=== PATIENT | male | born 1980 | race Caucasian/White ===

== ENCOUNTER 2016-11-05 15:29 | Emergency (ER) | payer OTHER ==
[~2016-11-05] VITALS: Ht 182.9 cm; Wt 109.1 kg
[2016-11-05 15:33] VITALS: TEMP 37.1; Ht 182.9 cm; Wt 109.1 kg
[2016-11-05] MEDS ORDERED: CYCL10TA6 PO (17:02)
[2016-11-05] MEDS ORDERED: IBUP-1427 PO (17:02)
--- NOTE | 2016-11-05 17:06 | EMERGENCY ROOM VISIT NOTE ---
History Report prepared by Jesica: Natali Del Toro Under the Supervision of: Dr. Jose López M.D. First contact with patient: 16:06 Chief Complaint: BACK PAIN Stated Complaint: BACK PAIN History of Present Illness The patient is a 36 year old male who presents to the Emergency Room with complaints of constant left sided lower back pain beginning 3 days prior to arrival. He rates his pain as 6/10 in severity. The patient describes his pain as an aching sensation. He note the pain began with a gradual onset. The patient notes pain radiates into his left thigh. He notes when walking his steps are shorter than normal and when laying down on his left side the pain worsens. He notes about 2 months ago he experienced similar pain which resolved on its own. The patient is unsure as to what he did to cause this pain. He did take Ibuprofen and Excedrin today with no relief of his symptoms. The patient denies fevers, chills, urinary symptoms or trouble moving his bowels. The patient has a laminectomy done 6 years ago on his right side. Source of History: patient Onset: [address] [employer] WORK[employer] Position: back (lower) Symptom Intensity: 6/10 Quality: ache Timing: constant Modifying Factors (Relieving): other (laying down on left side) Associated Symptoms: No fevers, No chills, No urinary symptoms Review of Systems All systems have been listed, reviewed, and are negative other than those previously mentioned. Please see Additional Medical History Sheet. Past Medical & Surgical Surgical Problems: (1) S/P laminectomy Family History Cancer Heart disease Hypertension Lung disease Social History Smoking Status: Former Smoker Alcohol Use: occasionally Marital Status: Housing Status: lives with significant other Occupation Status: employed Current/Historical Medications Scheduled PRN Cyclobenzaprine Hcl (Flexeril), 10 MG PO TID PRN for back pain Ibuprofen Tab (Motrin), 600 MG PO Q6H PRN for Pain Allergies Coded Allergies: Cefaclor (Verified Allergy, Intermediate, Swelling, 11/05/16) Erythromycin (Verified Allergy, Intermediate, Swelling, 11/05/16) Sulfisoxazole (Verified Allergy, Intermediate, Swelling, 11/05/16) Physical Exam Vital Signs Date Time Temp Pulse Resp B/P (MAP) Pulse Ox O2 Delivery O2 Flow Rate FiO2 11/05/16 17:18 56 18 166/76 98 Room Air 11/05/16 15:33 37.1 64 16 156/108 99 Room Air Physical Exam GENERAL: Patient awake, alert, oriented x 3. Patient follows commands. Patient does not appear toxic. Patient is adequately hydrated and well- nourished. SKIN: No erythema, pallor, cyanosis or rash HEENT: Normal head, pupils equal, reactive to light and accommodation. Ears normal. Oral cavity and posterior pharynx appear normal. Neck: Without adenopathy, no neck vein distention. LUNGS: Clear to auscultation. No wheezes, no rales, no rhonchi. HEART: No murmurs. No gallops. No rubs ABDOMEN: No masses, no rebound, no hepatomegaly or splenomegaly. EXTREMITIES: No signs of trauma. No pedal or pretibial edema. No calf or thigh tenderness. Strength of 5/5 in both upper and lower. Normal range of motion of upper and lower. MUSCULOSKELETAL: Positive straight leg raise test of left at 30 degree angle. Negative cross straight leg test of right leg. No point tenderness in cervical to lumbar spine. Pain with extension of back. Gait - pain reproduced with heel walking. NEUROLOGIC: Cranial nerves II-XII within normal limits. DTR 2+. Sensation intact. Medical Decision & Procedures Medications Administered Medications (Trade) Dose Ordered Sig/Arsh Route Start Time Stop Time Status Last Admin Dose Admin Cyclobenzaprine HCl (FLEXERIL 10MG Home Pack) 1 homepack UD ONCE PO 11/05/16 17:15 11/05/16 17:16 DC 11/05/16 17:20 1 HOMEPACK ED Course 1650: Past medical records reviewed. The patient was evaluated in room C2. A complete history and physical examination was performed. 1715: Flexeril 10 mg home pack 1 homepack PO. 1725: Upon reevaluation, the patient appeared to have improvement of his symptoms. I discussed today's findings with him. He verbalized agreement of the treatment plan. He was discharged home. Medical Decision Nurses notes reviewed. Medical history sheet reviewed. Differential diagnosis includes but is not limited to: spinal stenosis, disc herniation, musculoskeletal strain, cauda equina syndrome, sciatica. The patient is here with back pain. He is no deformity or signs of infection. The patient is a prior history of a laminectomy. Exam at this time is most consistent with musculoskeletal strain. The patient was placed on ibuprofen and Flexeril. He is to follow-up with employee health to make sure that his symptoms are resolving. The patient was placed off work for 2 days. Medication Reconciliation: I attest that I have personally reviewed the patient' s current medication list. Blood Pressure Screening: Patient was found to have an elevated blood pressure and was referred to their primary doctor for recheck and further treatment. Impression Primary Impression: Lumbar strain Scribe Attestation The scribe's documentation has been prepared under my direction and personally reviewed by me in its entirety. I confirm that the note above accurately reflects all work, treatment, procedures, and medical decision making performed by me. Departure Information Dispostion Home / Self-Care Prescriptions Cyclobenzaprine Hcl (FLEXERIL) 10 Mg Tab 10 MG PO TID Y for back pain, #10 TAB Prov: Jose López M.D. 11/05/16 Ibuprofen Tab (MOTRIN) 600 Mg Tab 600 MG PO Q6H Y for Pain, #20 TAB Prov: Jose López M.D. 11/05/16 Referrals No Doctor, Assigned (PCP) Forms HOME CARE DOCUMENTATION FORM, IMPORTANT VISIT INFORMATION, Work Instructions Patient Instructions My [facility] Additional Instructions Apply heat intermittently to your back over the next 2-3 days. 600 mg ibuprofen every 6 hours as needed for pain. One Flexeril every 8 hours as needed for back pain. Do not drive or operate machinery while taking Flexeril. Follow-up with Employee Health in one week if symptoms are not subsiding. Off work Monday 11/06 and Sunday11/07/16.
[2016-11-05] MEDS ORDERED: FLEXERIL HOME PACK 10 MG VIAL PO ONE (17:15)
[2016-11-05 17:18] VITALS: BP 166/76; PULSE 56; O2SAT 98
== END 2016-11-05 17:41 | disposition home or self-care (01) ==
LOC: C.EDB 15:30 → C.EDC 17:41
DX: S39.012A Strain of muscle, fascia and tendon of lower back, initial encounter (principal); X58.XXXA Exposure to other specified factors, initial encounter; Z82.49 Family history of ischemic heart disease and other diseases of the circulatory system; Z87.891 Personal history of nicotine dependence

== ENCOUNTER 2016-12-11 19:36 | Emergency (ER) | payer OTHER ==
[~2016-12-11] VITALS: Ht 182.9 cm; Wt 105.9 kg
[~2016-12-11 19:36] MED LIST: IBUP-1427 PO
[2016-12-11 19:46] VITALS: TEMP 37.1; Ht 182.9 cm; Wt 105.9 kg
[2016-12-11] MEDS ORDERED: KETOROLAC TROMETHAMINE 60 MG/2 ML VIAL IM STA (19:57)
[2016-12-11] MEDS ORDERED: HYDROCODONE/ACETAMOPHEN 5/325MG TAB PO STA (19:57)
[2016-12-11] MEDS ORDERED: DEXAMETHASONE SOD INJ 10 MG/ML VIAL IM ONE (20:00)
[2016-12-11] MEDS ORDERED: HYDR-5688 PO (20:17)
[2016-12-11] MEDS ORDERED: METH4PAK PO (20:17)
--- NOTE | 2016-12-11 20:35 | EMERGENCY ROOM VISIT NOTE ---
History First contact with patient: 19:52 Chief Complaint: BACK PAIN Stated Complaint: LEFT BACK PAIN History of Present Illness The patient is a 36 year old male who presents to the Emergency Room with complaints of left lower back pain. The patient states that approximately a month ago he had pain in the left lower back. He was seen here in the emergency room. 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 The patient denies any pain radiating down to his toes or any numbness and tingling in his lower extremity. The patient denies any loss of bowel or bladder control. The patient denies any saddle anesthesia. The patient does admit to a laminectomy 6 years ago. That was performed at [facility] by Dr. Sands Review of Systems 6 system review was performed and was negative unless stated otherwise in history of present illness. Past Medical/Surgical History Surgical Problems: (1) S/P laminectomy Family History Cancer Heart disease Hypertension Lung disease Social History Smoking Status: Never Smoker Alcohol Use: occasionally Marital Status: Housing Status: lives with significant other Occupation Status: employed Current/Historical Medications Scheduled Methylprednisolone (Medrol Dosepak), 0 PO DAILY Scheduled PRN Hydrocodone/Acetaminophen 5MG/325MG ([place] 5MG/325MG), 1-2 TABLET PO Q6 PRN for Pain Ibuprofen Tab (Motrin), 600 MG PO Q6H PRN for Pain Physical Exam Vital Signs Date Time Temp Pulse Resp B/P (MAP) Pulse Ox O2 Delivery O2 Flow Rate FiO2 12/11/16 19:46 37.1 98 18 151/94 100 Room Air Physical Exam PHYSICAL EXAM: Vital Signs normal: Reviewed Nurse's notes and agree. GENERAL: 36-year-old white male appears in no acute distress. MENTAL STATUS: Alert and oriented 3 LUMBAR SPINE: No gross bony abnormality noted. Patient is nontender to palpation over the spinous processes. He is nontender to palpation over the paravertebral regions bilaterally. He has limited range of motion in all directions secondary to pain.. Muscle strength is 5 out of 5 bilateral lower extremities and symmetrical. NEURO: Patient is able to heel and toe walk without difficulty. I lateral patellar and Achilles reflexes are 2+. Sensation is intact to pinprick bilateral lower extremities. Positive straight leg raise on the left. Medical Decision & Procedures Medications Administered Medications (Trade) Dose Ordered Sig/Arsh Route Start Time Stop Time Status Last Admin Dose Admin Dexamethasone Sodium Phosphate (Decadron Inj) 10 mg NOW ONCE IM 12/11/16 20:00 12/11/16 20:01 DC 12/11/16 20:07 10 MG Ketorolac Tromethamine (Toradol Inj) 60 mg NOW STAT IM 12/11/16 19:57 12/11/16 19:59 DC 12/11/16 20:06 60 MG Acetaminophen/ Hydrocodone Bitart ([place] 5/325 Tab) 2 tab NOW STAT PO 12/11/16 19:57 12/11/16 19:59 DC 12/11/16 20:07 2 TAB ED Course The patient was evaluated. The patient's EMR was reviewed. The patient was given Toradol 60 mg IM, Decadron 10 mg IM and [place] 5/325 mg 2 tablets by mouth for pain. The patient was reevaluated was feeling slightly better. The patient was discharged home in stable condition with his driving. Medical Decision Differential diagnosis include lumbar strain, sciatica, herniated disc [place] Drug Monitoring Program Search Results: patient reviewed within database Medication Reconcilliation Current Medication List: was personally reviewed by me Blood Pressure Screening Patient's blood pressure: Elevated blood pressure Blood pressure disposition: Elevated BP felt to be situational Impression Primary Impression: Low back pain with left-sided sciatica Departure Information Dispostion Home / Self-Care Condition GOOD Prescriptions Hydrocodone/Acetaminophen 5MG/325MG ([place] 5MG/325MG) Tab 1-2 TABLET PO Q6 Y for Pain, #20 TAB For Initial Treatment Prov: Terra Olivas PA-C 12/11/16 Methylprednisolone (MEDROL DOSEPAK) 4 Mg [place] 0 PO DAILY, #1 PKT Prov: Terra Olivas PA-C 12/11/16 Referrals No Doctor, Assigned (PCP) Forms HOME CARE DOCUMENTATION FORM, IMPORTANT VISIT INFORMATION Patient Instructions My [facility] Additional Instructions Off for tomorrow .Take Medrol dosepak as prescribed. Take ibuprofen 600 mg every 6 hours with food for pain. Take [place] as needed for more severe pain. Do not drive while taking the [place]. Do not stay in any one position for any extended period of time. If symptoms are not improving in 3-4 days, follow-up with your family doctor. Work Instructions Return To Work: 2 days Problem Qualifiers Primary Impression: Low back pain with left-sided sciatica Chronicity: acute Back pain laterality: left Qualified Codes: M54.42 - Lumbago with sciatica, left side
[2016-12-11 20:48] VITALS: BP 149/87; PULSE 68; O2SAT 96
== END 2016-12-11 20:50 | disposition home or self-care (01) ==
LOC: C.EDB 19:37 → C.EDD 20:50
DX: M54.42 Lumbago with sciatica, left side (principal); Z98.890 Other specified postprocedural states; Z80.9 Family history of malignant neoplasm, unspecified; Z82.49 Family history of ischemic heart disease and other diseases of the circulatory system

== ENCOUNTER 2021-02-12 06:23 | Inpatient (IN) ==
[2021-02-12] MEDS ORDERED: SODIUM CHLORIDE 0.9% 1000ML 1,000 ML IV STA (06:37)
--- NOTE | 2021-02-12 06:44 | Emergency Department Note ---
Impression & Plan 2019 novel coronavirus-infected pneumonia (NCIP), Hypoxia, Hypokalemia, Acute hyponatremia, Abnormal EKG ED Provider Note NAME: CRISTÓBAL RODRIGUEZ AGE: 40 SEX: M : 1980 ARRIVES VIA: Walk-In INFORMANT: Patient, ED PROVIDER(S): Adilson Mancini DO CHIEF COMPLAINT: Cough HPI: The patient is a 40-year-old male who is 11 days into COVID-19 infection. He started having symptoms 11 days ago. The patient did have a test that was positive. He is noticed cough and chest tightness. He is also noticed some nausea. He notices decreased smell and taste. He has not noticed any hemoptysis. He denies having any lower extremity swelling. He does complain of muscle aches as well as back pain. The patient has had no abdominal pain. He states symptoms became moderate to severe over the last couple days so he presented to the emergency department for further evaluation. The patient is not vaccinated against COVID-19. He did not see his family doctor for the symptoms. ROS: See above HPI for pertinent positives & negatives. A total of 10 systems reviewed and were otherwise negative. PAST MEDICAL HISTORY: See Below PAST SURGICAL HISTORY: See Below FAMILY HISTORY: See Below SOCIAL HISTORY: See Below HOME MEDICATIONS: See Below ALLERGIES: See Below VITALS: See Below PHYSICAL EXAMINATION: GENERAL: The patient is awake and alert. The patient is somewhat anxious appearing. EYES: The conjunctivae are clear. The pupils are round and reactive. EARS, NOSE, MOUTH AND THROAT: The nose is without any evidence of any deformity. NECK: The neck is nontender and supple. RESPIRATORY: There is no tachypnea or conversational dyspnea. Diminished breath sounds are noted throughout. CARDIOVASCULAR: Regular rate and rhythm noted there no murmurs rubs or gallops normal S1 normal S2. GASTROINTESTINAL: The abdomen is soft. Abdomen is nontender. MUSCULOSKELETAL/EXTREMITIES: There is no evidence of gross deformity full range of motion is noted in the hips and shoulders. SKIN: There is no obvious evidence of any rash. There are no petechiae, pallor or cyanosis noted. NEUROLOGIC: Patient is awake alert and oriented x3 MEDICAL DECISION MAKING: The patient is a 40-year-old male who is approximately 11 days with COVID-19 symptoms. The patient started having cough over the last few days. He is noticed very significant shortness of breath especially with exertion. He also notices chest pain. The patient was found to have some hypoxia with an abnormal chest x-ray that appears to be consistent with COVID-19. I discussed the patient's laboratory and radiographic studies with him. He was placed on submental oxygen. He also was treated with potassium replacement. He did have a repeat EKG in the emergency department. This appeared to show an irregular heart rate with ectopic beats. Given his acute potassium situation this is likely the cause. Given his findings I discussed his case with the on-call [facility] hospitalist. They have agreed to evaluate the patient in the emergency department for further management and disposition. Triage Nursing notes reviewed. Prior medical records reviewed Vital Signs: reviewed and remarkable for no significant abnormalities Differential diagnosis: Cardiac ischemia, aortic dissection, pulmonary embolism, pneumothorax, pneumonia, pericarditis, myocarditis, esophageal rupture, GERD, cholecystitis, pancreatitis, musculoskeletal, as well as other pathologies. ER treatment provided: See below Diagnostics interpreted by me: ECG: EKG was obtained in the emergency department. My interpretation is normal sinus rhythm at [address] Inferior and lateral ST depressions were noted. There was no ectopy. No previous tracing was available for comparison. A second EKG was obtained in the emergency department. My interpretation is normal sinus rhythm at 69 bpm. There is no ectopy. Inferior and lateral ST depressions were noted. This was compared to earlier tracing. There is no significant change. Cardiac Monitoring: An order was placed for continuous cardiac monitoring. The monitor shows a rate of 73 bpm with sinus rhythm. Laboratory studies: As stated above and show below. Imaging studies: See below Consultation(s): I discussed this case with Dr. Sales who is on-call for the [facility] hospitalist group. He will evaluate the patient in the emergency department for further management and disposition. Past Med/Surg History Medical History Exercise-induced asthma Lumbar strain Surgical History S/P laminectomy Social History Smoking Status: Former smoker Feels Safe at Home: Yes Allergies Allergies Allergy/AdvReac Type Severity Reaction Status Date / Time cefaclor Allergy Intermediate Swelling Verified 02/12/21 07:30 erythromycin base Allergy Intermediate Swelling Verified 02/12/21 07:30 sulfisoxazole Allergy Intermediate Swelling Verified 02/12/21 07:30 Home Meds Home Medications Medication Instructions Recorded Confirmed No Known Home Medications 02/12/21 02/12/21 Results & Data (ED) Vital Signs Vital Signs - 24 hr 02/12/21 06:26 02/12/21 07:00 02/12/21 08:13 Temperature 36.2 C L 37.6 C H Temperature Source Temporal Artery Scan Oral Pulse Rate 69 66 Pulse Rate [Apical] 73 Pulse Rate from SpO2 Sensor Pulse Rhythm Regular Respiratory Rate 18 20 13 Respiratory Effort / Characteristics Non-Labored Spontaneous Respiratory Depth Normal Blood Pressure 103/69 Blood Pressure [Left Arm] 120/73 Blood Pressure Mean 80 Blood Pressure Mean [Left Arm] 88 Pulse Oximetry 91 92 89 L Oxygen Delivery Method Room Air Room Air Room Air Oxygen Flow Rate Sepsis Recent Fever Within 48 Hours No Sepsis New/Unexplained Change in Mental Status No Sepsis Action Taken by Nursing No Action Required 02/12/21 08:15 02/12/21 10:00 02/12/21 10:30 Temperature Temperature Source Pulse Rate 63 68 Pulse Rate [Apical] Pulse Rate from SpO2 Sensor 68 Pulse Rhythm Respiratory Rate 28 H 30 H Respiratory Effort / Characteristics Respiratory Depth Blood Pressure 117/77 Blood Pressure [Left Arm] Blood Pressure Mean 90 Blood Pressure Mean [Left Arm] Pulse Oximetry 93 91 92 Oxygen Delivery Method Nasal Cannula Nasal Cannula Nasal Cannula Oxygen Flow Rate 2 2 2 Sepsis Recent Fever Within 48 Hours Sepsis New/Unexplained Change in Mental Status Sepsis Action Taken by Nursing 02/12/21 11:00 Temperature Temperature Source Pulse Rate 61 Pulse Rate [Apical] Pulse Rate from SpO2 Sensor 61 Pulse Rhythm Respiratory Rate 27 H Respiratory Effort / Characteristics Respiratory Depth Blood Pressure 119/77 Blood Pressure [Left Arm] Blood Pressure Mean 91 Blood Pressure Mean [Left Arm] Pulse Oximetry 92 Oxygen Delivery Method Nasal Cannula Oxygen Flow Rate 2 Sepsis Recent Fever Within 48 Hours Sepsis New/Unexplained Change in Mental Status Sepsis Action Taken by Usp Medications Current Medication List: was personally reviewed by me Laboratory Data Attestation: I reviewed the patient's lab results. Result diagrams: 02/12/21 07:11 02/12/21 07:11 Lab Results 02/12/21 02/12/21 02/12/21 Range/Units 07:11 07:11 07:11 WBC 3.17 L (4.8-10.8) K/uL RBC 4.62 L (4.7-6.1) M/uL Hgb 15.7 (14.0-18.0) g/dL Hct 42.8 (42-52) % MCV 92.6 (80-100) fL MCH 34.0 (25-34) pg MCHC 36.7 H (32-36) g/dL RDW Std Deviation 45.2 (36.4-46.3) fL RDW Coeff of Ankit 13.3 (11.5-14.5) % Plt Count 192 (130-400) K/uL MPV 11.5 H (7.4-10.4) fL Immature Gran % (Auto) 0.3 % Neut % (Auto) 67.2 % Lymph % (Auto) 18.6 % Payette % (Auto) 13.9 % Eos % (Auto) 0.0 % Baso % (Auto) 0.0 % Neut # (Auto) 2.13 (1.4-6.5) K/uL Lymph # (Auto) 0.59 L (1.2-3.4) K/uL Payette # (Auto) 0.44 (0.11-0.59) K/uL Eos # (Auto) 0.00 (0-0.5) K/uL Baso # (Auto) 0.00 (0-0.2) K/uL Immature Gran # (Auto) 0.01 (0.00-0.02) K/uL PT 11.0 (9.0-12.0) Seconds INR 1.1 (0.9-1.1) APTT 30.3 (21.0-31.0) Seconds PTT Ratio 1.2 D-Dimer 500 (0-500) ug/L FEU Sodium 127 L (136-145) mmol/L Potassium 2.5 L* (3.5-5.1) mmol/L Chloride 89 L (98-107) mmol/L Carbon Dioxide 25 (21-32) mmol/L Anion Gap 13.0 H (3-11) BUN 9 (7-18) mg/dl Creatinine 0.72 (0.6-1.4) mg/dl Est Cr Clr Drug Dosing 166.2 ml/min Est GFR ( Amer) 137.2 ml/min Est GFR (Non-Af Amer) 118.3 ml/min BUN/Creatinine Ratio 12.7 (10-20) Glucose 100 H (70-99) mg/dl Calcium 8.1 L (8.5-10.1) mg/dl Magnesium (1.8-2.4) mg/dl Total Bilirubin 0.9 (0.2-1) mg/dl AST 46 H (15-37) U/L ALT 35 (12-78) U/L Alkaline Phosphatase 100 (45-117) U/L Troponin I < 0.015 (0-0.045) ng/ml C-Reactive Protein (0-0.29) mg/dl Total Protein 6.9 (6.4-8.2) gm/dl Albumin 2.9 L (3.4-5.0) gm/dl Globulin 4.0 (2.5-4.0) gm/dl Albumin/Globulin Ratio 0.7 L (0.9-2) Lipase 493 H (73-393) U/L COVID-19 Eval Order SARS-CoV-2 (PCR) (Negative) 02/12/21 02/12/21 02/12/21 Range/Units 07:11 07:11 08:18 WBC (4.8-10.8) K/uL RBC (4.7-6.1) M/uL Hgb (14.0-18.0) g/dL Hct (42-52) % MCV (80-100) fL MCH (25-34) pg MCHC (32-36) g/dL RDW Std Deviation (36.4-46.3) fL RDW Coeff of Ankit (11.5-14.5) % Plt Count (130-400) K/uL MPV (7.4-10.4) fL Immature Gran % (Auto) % Neut % (Auto) % Lymph % (Auto) % Payette % (Auto) % Eos % (Auto) % Baso % (Auto) % Neut # (Auto) (1.4-6.5) K/uL Lymph # (Auto) (1.2-3.4) K/uL Payette # (Auto) (0.11-0.59) K/uL Eos # (Auto) (0-0.5) K/uL Baso # (Auto) (0-0.2) K/uL Immature Gran # (Auto) (0.00-0.02) K/uL PT (9.0-12.0) Seconds INR (0.9-1.1) APTT (21.0-31.0) Seconds PTT Ratio D-Dimer (0-500) ug/L FEU Sodium (136-145) mmol/L Potassium (3.5-5.1) mmol/L Chloride (98-107) mmol/L Carbon Dioxide (21-32) mmol/L Anion Gap (3-11) BUN (7-18) mg/dl Creatinine (0.6-1.4) mg/dl Est Cr Clr Drug Dosing ml/min Est GFR ( Amer) ml/min Est GFR (Non-Af Amer) ml/min BUN/Creatinine Ratio (10-20) Glucose (70-99) mg/dl Calcium (8.5-10.1) mg/dl Magnesium 1.9 (1.8-2.4) mg/dl Total Bilirubin (0.2-1) mg/dl AST (15-37) U/L ALT (12-78) U/L Alkaline Phosphatase (45-117) U/L Troponin I (0-0.045) ng/ml C-Reactive Protein 3.85 H (0-0.29) mg/dl Total Protein (6.4-8.2) gm/dl Albumin (3.4-5.0) gm/dl Globulin (2.5-4.0) gm/dl Albumin/Globulin Ratio (0.9-2) Lipase (73-393) U/L COVID-19 Eval Order Covid19 at [facility] SARS-CoV-2 (PCR) (Negative) 02/12/21 Range/Units 08:18 WBC (4.8-10.8) K/uL RBC (4.7-6.1) M/uL Hgb (14.0-18.0) g/dL Hct (42-52) % MCV (80-100) fL MCH (25-34) pg MCHC (32-36) g/dL RDW Std Deviation (36.4-46.3) fL RDW Coeff of Ankit (11.5-14.5) % Plt Count (130-400) K/uL MPV (7.4-10.4) fL Immature Gran % (Auto) % Neut % (Auto) % Lymph % (Auto) % Payette % (Auto) % Eos % (Auto) % Baso % (Auto) % Neut # (Auto) (1.4-6.5) K/uL Lymph # (Auto) (1.2-3.4) K/uL Payette # (Auto) (0.11-0.59) K/uL Eos # (Auto) (0-0.5) K/uL Baso # (Auto) (0-0.2) K/uL Immature Gran # (Auto) (0.00-0.02) K/uL PT (9.0-12.0) Seconds INR (0.9-1.1) APTT (21.0-31.0) Seconds PTT Ratio D-Dimer (0-500) ug/L FEU Sodium (136-145) mmol/L Potassium (3.5-5.1) mmol/L Chloride (98-107) mmol/L Carbon Dioxide (21-32) mmol/L Anion Gap (3-11) BUN (7-18) mg/dl Creatinine (0.6-1.4) mg/dl Est Cr Clr Drug Dosing ml/min Est GFR ( Amer) ml/min Est GFR (Non-Af Amer) ml/min BUN/Creatinine Ratio (10-20) Glucose (70-99) mg/dl Calcium (8.5-10.1) mg/dl Magnesium (1.8-2.4) mg/dl Total Bilirubin (0.2-1) mg/dl AST (15-37) U/L ALT (12-78) U/L Alkaline Phosphatase (45-117) U/L Troponin I (0-0.045) ng/ml C-Reactive Protein (0-0.29) mg/dl Total Protein (6.4-8.2) gm/dl Albumin (3.4-5.0) gm/dl Globulin (2.5-4.0) gm/dl Albumin/Globulin Ratio (0.9-2) Lipase (73-393) U/L COVID-19 Eval Order SARS-CoV-2 (PCR) POSITIVE A* (Negative) Administered Medications Discontinued Medications Dexamethasone Sodium Phosphate (DexamethasonePf 10 Mg/Ml Vial) 10 mg IV NOW ONE Stop: 02/12/21 08:12 Last Admin: 02/12/21 08:16 Dose: 10 mg Documented by: [id number] Sodium Chloride (Nss 1000ml) 1,000 mls @ 999 mls/hr IV .Q1H1M STA Stop: 02/12/21 07:37 Last Infusion: 02/12/21 08:05 Dose: 0 mls/hr Documented by: [id number] Admin: 02/12/21 07:09 Dose: 999 mls/hr Documented by: [id number] Potassium Chloride (K Levy / Wtr) 10 meq in 100 mls @ 100 mls/hr IV Q1H HAYDEE Stop: 02/12/21 09:59 Last Infusion: 02/12/21 09:06 Dose: 0 mls/hr Documented by: [id number] Admin: 02/12/21 08:06 Dose: 100 mls/hr Documented by: [id number] Ioversol (Optiray 320 125ml) 111 ml IV ONCE ONE Stop: 02/12/21 09:51 Last Admin: 02/12/21 09:50 Dose: 111 ml Documented by: [id number] Potassium Chloride (Potassium Chloride Crtab 20 Meq Tabcr) 20 meq PO NOW STA Stop: 02/12/21 07:52 Last Admin: 02/12/21 08:05 Dose: 20 meq Documented by: [id number] Potassium Chloride (Potassium Chloride Crtab 20 Meq Tabcr) 40 meq PO NOW STA Stop: 02/12/21 08:58 Last Admin: 02/12/21 09:22 Dose: 40 meq Documented by: [id number] Imaging Data Radiologist's Impression: Chest X-Ray 02/12/21 06:38 XR chest 1V portable CLINICAL HISTORY: Atypical chest pain. COMPARISON STUDY: No previous studies for comparison. FINDINGS: Lung volumes are normal. Mild to moderate multifocal bilateral airspace opacities are noted. These are greater within the right lung. There is no pneumothorax or pleural effusion. Cardiac size is normal. Mediastinal contours are normal. There is no evidence for pulmonary edema. IMPRESSION: Multifocal bilateral airspace opacities suggestive of pneumonia. Radiographic follow-up to ensure resolution is recommended. ACT 112: Negative or not required by law. Electronically signed by: Todd Barragan M.D. 02/12/2021 7:34 AM Chest CTA 02/12/21 09:00 CHEST CTA for PULMONARY ARTERIES CT DOSE: 451.56 mGy.cm HISTORY: Cough. Shortness of breath. Covid positive. TECHNIQUE: Multiaxial CT images of the chest were performed following the intravenous administration of contrast to evaluate the pulmonary arteries. M aximal intensity projection images were also obtained. A dose lowering technique was utilized adhering to the principles of ALARA. COMPARISON STUDY: None. FINDINGS: The visualized liver, spleen, and adrenal glands are unremarkable. No pleural or pericardial effusions. The heart is normal in size. A few prominent mediastinal and bilateral hilar lymph nodes are likely reactive. Normal esophagus. Normal caliber thoracic aorta with no evidence for dissection. No filling defects within the arteries to suggest a pulmonary embolus. No pneumothorax. The central airways are patent. Multifocal patchy groundglass airspace opacities seen throughout the lungs consistent with a moderate viral pneumonia. IMPRESSION: 1. No evidence for pulmonary embolus. 2. Multifocal groundglass bilateral airspace opacities consistent with a viral pneumonia. ACT 112: Negative or not required by law. Electronically signed by: Jimy Marroquin M.D. 02/12/2021 10:31 AM Discharge Plan Visit Data Chief Complaint: Illness Stated Complaint: DIZZY,FEVER ED Provider: Adilson Mancini Discharge Problem: 2019 novel coronavirus-infected pneumonia (NCIP), Hypoxia, Hypokalemia, Acute hyponatremia, Abnormal EKG Patient Disposition: Being Evaluated by Hospitalist Forms Stand Alone Forms: [employer] Prescriptions Prescriptions: No Action No Known Home Medications RF: 0 Referrals Referrals: PCP,NO [Primary Care Provider] -
[2021-02-12 07:30] LABS: Hematocrit (blood only) 42.8 % (42-52); Hemoglobin 15.7 g/dL (14.0-18.0); Immature Granulocytes # (auto) 0.01 K/uL (0.00-0.02); Immature Granulocytes % (auto) 0.3 %; Lymphocytes # (auto) 0.59 K/uL (1.2-3.4); Lymphocytes % (auto) 18.6 %; Mean Corpuscular Hgb Conc 36.7 g/dL (32-36); Mean Corpuscular Volume 92.6 fL (80-100); Mean Platelet Volume 11.5 fL (7.4-10.4); Monocytes # (auto) 0.44 K/uL (0.11-0.59); Monocytes % (auto) 13.9 %; Neutrophils # (auto) 2.13 K/uL (1.4-6.5); Neutrophils % (auto) 67.2 %; Platelet Count 192 K/uL (130-400); RDW Coefficient of Variation 13.3 % (11.5-14.5); RDW Standard Deviation 45.2 fL (36.4-46.3); Red Blood Count 4.62 M/uL (4.7-6.1); White Blood Count 3.17 K/uL (4.8-10.8)
--- NOTE | 2021-02-12 07:35 | XRay Report ---
XR chest 1V portable CLINICAL HISTORY: Atypical chest pain. COMPARISON STUDY: No previous studies for comparison. FINDINGS: Lung volumes are normal. Mild to moderate multifocal bilateral airspace opacities are noted . These are greater within the right lung. There is no pneumothorax or pleural effusion. Cardiac size is normal. Mediastinal contours are normal. There is no evidence for pulmonary edema. IMPRESSION: Multifocal bilateral airspace opacities suggestive of pneumonia. Radiographic follow-up to ensure resolution is recommended. ACT 112: Negative or not required by law. Electronically signed by: Todd Barragan M.D. 02/12/2021 7:34 AM
[2021-02-12 07:51] LABS: Alanine Aminotransferase 35 U/L (12-78); Albumin Globulin Ratio 0.7 (0.9-2); Albumin Level 2.9 gm/dl (3.4-5.0); Alkaline Phosphatase 100 U/L (45-117); Aspartate Aminotransferase 46 U/L (15-37); BUN Creatinine Ratio 12.7 (10-20); Bilirubin,Total 0.9 mg/dl (0.2-1); Blood Urea Nitrogen 9 mg/dl (7-18); Calcium 8.1 mg/dl (8.5-10.1); Carbon Dioxide 25 mmol/L (21-32); Chloride 89 mmol/L (98-107); Creatinine Clr Calc Pharmacy 166.2 ml/min; Est GFR (African American) 137.2 ml/min; Est GFR (Non-African American) 118.3 ml/min; Glucose 100 mg/dl (70-99); Lipase 493 U/L (73-393); Potassium 2.5 mmol/L (3.5-5.1); Sodium 127 mmol/L (136-145); Total Protein 6.9 gm/dl (6.4-8.2); Troponin I < 0.015 ng/ml (0-0.045)
[2021-02-12] MEDS ORDERED: POTASSIUM CHLORIDE CRTAB 20 MEQ TABCR PO STA ×3 (07:51→18:22)
[2021-02-12 07:52] LABS: D Dimer 500 ug/L FEU (0-500); INR 1.1 (0.9-1.1); Partial Thromboplastin Ratio 1.2; Partial Thromboplastin Time 30.3 Seconds (21.0-31.0)
[2021-02-12] MEDS ORDERED: POTASSIUM CHLORIDE / WTR 10 MEQ/100 ML PLCT IV SCH (08:00)
[2021-02-12] MEDS ORDERED: dexAMETHasone**PF** 10 MG/ML VIAL IV ONE (08:11)
[2021-02-12] MEDS ORDERED: OPTIRAY 320 125ml IV ONE (09:50)
--- NOTE | 2021-02-12 10:32 | CT Scan Report ---
CHEST CTA for PULMONARY ARTERIES CT DOSE: 451.56 mGy.cm HISTORY: Cough. Shortness of breath. Covid positive. TECHNIQUE: Multiaxial CT images of the chest were performed following the intravenous administration of contrast to evaluate the pulmonary arteries. Maximal intensity projection images were also obtaine d. A dose lowering technique was utilized adhering to the principles of ALARA. COMPARISON STUDY: None. FINDINGS: The visualized liver, spleen, and adrenal glands are unremarkable. No pleural or pericardia l effusions. The heart is normal in size. A few prominent mediastinal and bilateral hilar lymph nodes are likely reactive. Normal esophagus. Normal caliber thoracic aorta with no evidence for dissection . No filling defects within the arteries to suggest a pulmonary embolus. No pneumothorax. The central airways are patent. Multifocal patchy groundglass airspace opacities seen throughout the lungs consi stent with a moderate viral pneumonia. IMPRESSION: 1. No evidence for pulmonary embolus. 2. Multifocal groundglass bilateral airspace opacities consistent with a viral pneumonia. ACT 112: Negative or not required by law. Electronically signed by: Jimy Marroquin M.D. 02/12/2021 10:31 AM
[2021-02-12] MEDS ORDERED: ALUMINUM/MAGNESIUM SUSP 30 ML UDC PO PRN (13:44)
[2021-02-12] MEDS ORDERED: MAGNESIUM HYDROXIDE SUSP 30 ML UDC PO PRN (13:44)
[2021-02-12] MEDS ORDERED: POLYETHYLENE (MIRALAX) 17 GM PACK PO PRN (13:44)
[2021-02-12] MEDS ORDERED: ONDANSETRON INJ 2 MG/ML 2 ML VIAL IV PRN (13:44)
[2021-02-12] MEDS ORDERED: ACETAMINOPHEN 325 MG TAB PO PRN (13:44)
[2021-02-12] MEDS ORDERED: ALBUTEROL HFA 8 GM INHALER INH PRN (13:44)
[2021-02-12] MEDS ORDERED: ENOXAPARIN INJ 40 MG/0.4 ML SYR SQ SCH (14:00)
--- NOTE | 2021-02-12 16:16 | History & Physical Report ---
Date of Service February 12, 2021 Assessment & Plan (1) 2019 novel coronavirus-infected pneumonia (NCIP): Plan: Fairly late in the course, chest CT with diffuse bilateral viral type infiltrates. Fortunately does not appear ill enough with CRP/oxygenation/etc. to require monoclonal antibody. Does fit criteria for dexamethasonestarted in ER, will continue. Continue oxygen and supportive care. Hopefully will be able to quickly wean off oxygen, and may be home in the near future. (2) Hypoxia: Plan: Fortunately relatively mild given the diffuse nature of the infiltrates on his chest CT. See above. (3) Hypokalemia: Plan: From poor p.o. intake from lack of taste and smell. Continue to supplementrepeat basic metabolic panel later today and supplement further if needed. Encouraged p.o. intake and spite of poor taste/smell (4) Acute hyponatremia: Plan: Fairly similar mechanism to the hypokalemiawould anticipate this improving with p.o. intake, I do not believe specific treatment is going to be required. Even though he probably has a degree of hyponatremic dehydration given his poor p.o. intake/Covid pneumonia, given the propensity to want to keep Covid patients more on the dry side for the respiratory status, I would refrain from further IV flu ids, given that he is hemodynamically stable and his creatinine is not elevated. (5) Tachycardia: Plan: Improving with supportive care and oxygen (6) Exercise-induced asthma: Plan: Not wheezing, it sounds like this is a mild, remote problemhowever albuterol as needed has been ordered (7) DVT prophylaxis: Plan: Lovenox (8) Discharge planning issues: Plan: Admit to telemetry due to the tachycardia, supportive care/plan as above, home once he is eating and drinking okay, electrolytes are improving, and oxygenation has improved to him being able to be on room air (or if that is a slower improvement, then home oxygen being set up) Admission and Anticipated Discharge Date Admission Date: February 12, 2021 History of Present Illness Chief Complaint: Shortness of breath Primary Care Provider: NO PCP Patient is a very pleasant 40-year-old male who presents with shortness of breath and a cough and general malaise. He was first diagnosed with Covid about 11 days ago, and notes that he felt really sick with fevers and cough and general malaise for about a week. Then he felt for a day or 2 like it was may be going to start to get better, and then felt like he worsened again. He feels a degree of shortness of breath, cough, poor taste and smell, general malaise, body aches. All of these are ongoing, and other than the fact that he briefly started to feel better and then worse, mostly unchanged. He has had a hard time eating and drinking because everything tastes poorly. He presented to the ER, was found to be tachycardic, with electrolyte disturbances, somewhat hypoxic, and because of all of this we were asked to admit him for further care. He is not vaccinatedin discussion on this, he noted that his concern was that the vaccine may have been rushed. That said, after discussion he also notes that most of his friends and family have been vaccinated, and in think about his current situation, as well as the additional immunity that vaccine may confer, he notes that now that he has been through this he is actually interested in potentially getting a vaccine down the road. While he carries a diagnosis of exercise-induced asthma, he has not needed an inhaler in essentially as long as he can remember. Allergies Allergy/AdvReac Type Severity Reaction Status Date / Time cefaclor Allergy Intermediate Swelling Verified 02/12/21 07:30 erythromycin base Allergy Intermediate Swelling Verified 02/12/21 07:30 sulfisoxazole Allergy Intermediate Swelling Verified 02/12/21 07:30 Home Medications Medication Instructions Recorded Confirmed Type No Known Home Medications 02/12/21 02/12/21 History Past Med/Surg History Medical History (Updated 02/12/21 @ 16:22 by Zenon Sales DO) Exercise-induced asthma Lumbar strain Surgical History S/P laminectomy Social History Smoking Status: Former smoker Second Hand Exposure: No; Do You Dip or Chew Tobacco: No; Tobacco Cessation Education Requested by Patient: No Hx Alcohol Use: No Hx Substance Use: No Preferred Language: Marshallese Communication Ability: Effective Rectifying Operator Required: No Beliefs That Will Affect Care: None Current Living Situation: Spouse Other Information That Helps Us Care for You: No Feels Safe at Home: No Is there a partner from a previous relationship who is making you feel unsafe now?: No Any Concerns about Your Family Situation: No Would You Like to Speak to Someone About Your Situation: No Safety Concerns: Feels Safe At This Time Assistive Devices: None Review of Systems Review of Systems: All systems reviewed & are unremarkable except as noted in HPI & below Physical Exam Physical Exam: In general he is awake alert oriented x3, pleasant but very fatigued. No distress. HEENT normocephalic atraumatic mucous membranes moist. Cardio regular no rubs murmurs or gallops. Lungs diminished air entry throughout, but no rales rhonchi or wheezes, no accessory muscle use good effort. He is coughing during interview and exam abdomen soft nondistended nontender no masses organomegaly. Extremities show no cyanosis clubbing or edema, no calf tenderness. Skin shows no rashes, no pallor, no icterus. Neuro shows cranial nerves II through XII be grossly intact gross motor and sensory are intact. Musculoskeletal shows no gross lesions. Mental status shows good recent and remote recall normal mood and affect, good judgment and insight. Chest x-ray reviewed, because of the lateral wedge shaped infiltrative lesionc hest CT obtained to rule out PE with pulmonary infarctfortunately this was ruled out, CT showed a diffuse viral pneumonia type finding. Labs noted, CRP was added, and fortunately is only 3.85. Reviewed on cardiac monitorappears to have all been sinus/sinus tach Results & Data Results & Data ([facility]) Vital Signs (Past 12 Hours) Vital Signs Temp Pulse Pulse Resp BP BP Pulse Ox 02/12/21 12:55 99.1 F 60 16 119/74 95 02/12/21 12:30 58 L 17 96 02/12/21 12:00 60 32 H 131/86 95 02/12/21 11:30 55 L 28 H 93 02/12/21 11:00 61 27 H 119/77 92 02/12/21 10:30 68 30 H 92 02/12/21 10:00 63 28 H 117/77 91 02/12/21 08:15 93 02/12/21 08:13 99.7 F H 73 13 120/73 89 L 02/12/21 07:00 66 20 92 02/12/21 06:26 97.2 F L 69 18 103/69 91 Code Status & VTE Plan VTE Prophylaxis Plan VTE Prophylaxis will be ordered: Yes PG Care Time/CCT Total # of Minutes Spent Total Time Spent with Patient: Total time spent is greater than 50% in coordination of care (as documented) at patient's floor/unit and/or counseling patient: Coding Level of Care Code 15745 Initial Inpt Care Lvl 3 Diagnoses 2019 novel coronavirus-infected pneumonia (NCIP) U07.1; J12.82 Hypoxia R09.02 Hypokalemia E87.6 Acute hyponatremia E87.1 Tachycardia R00.0 Exercise-induced asthma J45.990 DVT prophylaxis Z29.9 Discharge planning issues Z02.9
[2021-02-12 17:08] LABS: BUN Creatinine Ratio 8.9 (10-20); Calcium 8.5 mg/dl (8.5-10.1); Est GFR (African American) 131.3 ml/min; Est GFR (Non-African American) 113.3 ml/min; Potassium 3.1 mmol/L (3.5-5.1)
[2021-02-13 07:32] LABS: Basophils # (auto) 0.01 K/uL (0-0.2); Basophils % (auto) 0.3 %; Hematocrit (blood only) 42.9 % (42-52); Hemoglobin 15.6 g/dL (14.0-18.0); Immature Granulocytes # (auto) 0.02 K/uL (0.00-0.02); Immature Granulocytes % (auto) 0.6 %; Lymphocytes # (auto) 0.65 K/uL (1.2-3.4); Lymphocytes % (auto) 18.5 %; Mean Corpuscular Hemoglobin 34.7 pg (25-34); Mean Corpuscular Hgb Conc 36.4 g/dL (32-36); Mean Corpuscular Volume 95.3 fL (80-100); Mean Platelet Volume 11.6 fL (7.4-10.4); Monocytes # (auto) 0.63 K/uL (0.11-0.59); Monocytes % (auto) 17.9 %; Neutrophils % (auto) 62.7 %; Platelet Count 255 K/uL (130-400); RDW Coefficient of Variation 13.3 % (11.5-14.5); RDW Standard Deviation 46.4 fL (36.4-46.3); White Blood Count 3.51 K/uL (4.8-10.8)
[2021-02-13 07:54] LABS: BUN Creatinine Ratio 14.3 (10-20); Blood Urea Nitrogen 8 mg/dl (7-18); Calcium 8.8 mg/dl (8.5-10.1); Carbon Dioxide 28 mmol/L (21-32); Chloride 97 mmol/L (98-107); Creatinine Clr Calc Pharmacy 209.2 ml/min; Est GFR (African American) > 150.0 ml/min; Est GFR (Non-African American) 130.3 ml/min; Glucose 117 mg/dl (70-99); Potassium 3.3 mmol/L (3.5-5.1); Sodium 133 mmol/L (136-145)
[2021-02-13] MEDS ORDERED: POTASSIUM CHLORIDE CRTAB 20 MEQ TABCR PO STA (08:16)
[2021-02-13] MEDS ORDERED: dexAMETHasone 6 MG in SYRINGE 0 ML IV SCH (09:00)
--- NOTE | 2021-02-13 09:34 | Electrocardiogram Report ---
Test Reason : Blood Pressure : / mmHG Vent. Rate : 070 BPM Atrial Rate : 070 BPM P-R Int : 144 ms QRS Dur : 104 ms QT Int : 468 ms P-R-T Axes : 003 027 -26 degrees QTc Int : 505 ms Poor data quality, interpretation may be adversely affected Normal sinus rhythm Nonspecific ST abnormality Prolonged QT Abnormal ECG No previous ECGs available Confirmed by Shashank Peterson ([id number]) on 02/13/2021 9:34:15 AM Referred By: REFERRED SELF Confirmed By:Shashank Peterson
--- NOTE | 2021-02-13 09:37 | Electrocardiogram Report ---
Test Reason : Blood Pressure : / mmHG Vent. Rate : 069 BPM Atrial Rate : 069 BPM P-R Int : 148 ms QRS Dur : 102 ms QT Int : 536 ms P-R-T Axes : 000 038 010 degrees QTc Int : 574 ms Normal sinus rhythm Nonspecific ST and T wave abnormality Prolonged QT Abnormal ECG When compared with ECG of 12-FEB-2021 07:04, (unconfirmed) Nonspecific ST depression is slightly worse QT has lengthened Confirmed by Shashank Peterson ([id number]) on 02/13/2021 9:36:48 AM Referred By: REFERRED SELF Confirmed By:Shashank Peterson
--- NOTE | 2021-02-13 18:09 | Discharge Summary ---
Date of Service February 13, 2021 Admission HPI Per Admitting Provider Patient is a very pleasant 40-year-old male who presents with shortness of breath and a cough and general malaise. He was first diagnosed with Covid about 11 days ago, and notes that he felt really sick with fevers and cough and general malaise for about a week. Then he felt for a day or 2 like it was may be going to start to get better, and then felt like he worsened again. He feels a degree of shortness of breath, cough, poor taste and smell, general malaise, body aches. All of these are ongoing, and other than the fact that he briefly started to feel better and then worse, mostly unchanged. He has had a hard time eating and drinking because everything tastes poorly. He presented to the ER, was found to be tachycardic, with electrolyte disturbances, somewhat hypoxic, and because of all of this we were asked to admit him for further care. He is not vaccinatedin discussion on this, he noted that his concern was that the vaccine may have been rushed. That said, after discussion he also notes that most of his friends and family have been vaccinated, and in think about his current situation, as well as the additional immunity that vaccine may confer, he notes that now that he has been through this he is actually interested in potentially getting a vaccine down the road. While he carries a diagnosis of exercise-induced asthma, he has not needed an inhaler in essentially as long as he can remember. Principal Diagnosis covid Discharge Exam gen aaox3 pleasant but fatigued nad heent nc at mmm breathing unlabored no accessory muscles good effort lungs diminished throughout but no r/r/w more or less similar, maybe slightly better air entry, compared to yesterday. skin no rashes no pallor or icterus. cn 2-12 grossly intact gross motor/sensory intact. Qtc shortening on EKG Discharge Data Allergies Allergy/AdvReac Type Severity Reaction Status Date / Time cefaclor Allergy Intermediate Swelling Verified 02/12/21 07:30 erythromycin base Allergy Intermediate Swelling Verified 02/12/21 07:30 sulfisoxazole Allergy Intermediate Swelling Verified 02/12/21 07:30 Consultations 02/12/21 09:00 ED Decision to Admit Stat 02/13/21 18:03 Consult [facility] budget counselor Routine Ordered Studies 02/12/21 09:00 CT angio chest PE protocol Stat Hospital Course (1) 2019 novel coronavirus-infected pneumonia (NCIP): Fairly late in the course, chest CT with diffuse bilateral viral type infiltrates. Fortunately does not appear ill enough with CRP/oxygenation/etc. to require immune inhibiting monoclonal antibody. too late in the course for spike protein monoclonal or remdesivir. showing stability/improvement on dexamethasone, on RA, definitely not worsening - stable for home (2) Hypoxia: Fortunately relatively mild given the diffuse nature of the infiltrates on his chest CT. >90 on RA, stable for home. see dc instructions discussed that it may take a while for breathing/oxygenation to truly return to normal (3) Hypokalemia: From poor p.o. intake from lack of taste and smell. supplemented aggressively. reviewed need for PO intake despite taste/smell issues - he expresses understanding. (4) Acute hyponatremia: Fairly similar mechanism to the hypokalemiaimproving. PO intake will likely normalize this. BMP 1-2 wks (assuming QTc continues to correct) (5) Tachycardia: Improved with supportive care and oxygen, and now no longer needing O2 (6) Exercise-induced asthma: Not wheezing, it sounds like this is a mild, remote problem (7) DVT prophylaxis: Lovenox utilized during his stay; given thrombogenic nature of covid, will have on asa 81mg daily for a short time (8) Long QT interval: improving - almost certainly due to hypokalemia/nutrition issues - which are now improving. appearing stable for home, risk/benefit favors home. EKG as outpt this week to track to resolution (9) Discharge planning issues: stable for home, will need to be off work till he improves further. does not have PCP and will need follow up - asked VERONICA escobar to assist with this - to facilitate timely establishment with PCP rec'd [facility]. Total Time Total Time Spent Total Time Spent (In Minutes): >30 Discharge Plan Discharge Items Patient Disposition: Home - Self-Care Reason For Visit: COVID, HYPOXIA, TACHYCARDIA Discharge Diagnosis: covid pneumonia, acute malnutrition Activity: Per Instructions section Non-emergency contact: Primary Care Provider Call non-emergency contact if: you have any medication questions, your symptoms worsen and your temperature is above 101 Follow-up/Referrals: PCP,NO [Primary Care Provider] - Diet: Regular Addtl Attending Provider Instructions: Pneumonia due to Covid -As you saw on the CT scan that we looked at together, you have a very extensive pneumonia in both lungs caused by Covid -This extensive pneumonia is why you are having so much coughing, and why you feel so easily short of breath -As we discussed, what we are seeing is that it seems like Covid is a "2 phase illness"where the first week you were sick was largely due to the virus itself, and then the sudden getting sicker was because of your immune system overreacting to the presence of the virus, and "making a mess" with the inflam matory response it was using to try to clear out the virus -At this point, the "mess" caused by your immune system is likely the biggest part of what is still making you feel sick/short of breath/etc., and unfortunately because there is so much lung tissue involved, it will likely just take a while for that inflammation and mess to go away. -The steroids (Decadron, dexamethasone) will do a nice job of settling down that immune system inflammationthe biggest thing that it appears that will do is help you not have more of a mess made, unfortunately, it does not always help accelerate "cleaning up the mess" although it can -We will treat with the steroids (dexamethasone) for 10 daysyou have had 2 days IV here, you will switch over to oral dexamethasone with your first dose being tomorrow (it is just a once a day dosing, really it is about equal potency IV versus oral, it just usually we started IV whenever people are feeling lousy slight on if the swallow a pill) -As we discussed, the cough/shortness of breath/shortness of breath with exertion will take quite a while to improvebecause you are young and healthy, it could be as little as 2 weeks, but with what we have been seeing with this virus, as well as how inflamed your lungs were, it also unfortunately would not surprise me if it takes till the better part of Cam[place] -At this point, worsening related directly to the coronavirus, or your immune system's reaction to the virus, or both quite unlikely. Usually what we see when people worsen is that first they are sick with a virus, start to get better, and suddenly get sick againexactly what happened with youbut that "sick again" is generally when we see the immune system over reaction making someone sick. Once that response has leveled off, it is extremely rare to see it suddenly gear up and worsen again. Being on the steroids makes that even less likely. So even though you only improved a little from yesterday into today, the fact that you improved at all is extremely reassuring that we have reached the plateau of your illness, and things should slowly improve from here -As we discussed, the most likely reason that you would get sick again/worsen again, would be picking up a bacterial pneumonia on top of the Covid pneumonia, while your immune system is still compromised and your lungs are still inflamed. While this can happen anywhere, it is actually statistically more likely to pharmacy picking tech a new bacteria in the hospital, which is why it safer to get you home. Fortunately, we are not seeing this happen at time, although it does happenwhat you would want to look for is any new fever should be looked at right away, and if you have new shortness of breath that is clearly worse, a clearly worsening cough (especially if you start bringing up junk that you have not been bringing up before), or generally just feeling much sickershould any of those things happen, then we would worry about picking up a secondary pneumoniawhich would require antibiotic type treatment. -When you are walking around, if something makes you feel too short of breath, that is your body/lungs telling you that right now, for what you are doing, you are not really getting enough airunfortunately what that means is you are recovering from this is that you will need to slow down, stop, or rest. Getting a pulse oximeter (the pharmacies have themso whoever picks up your dexamethasone could pick 1 up for you as well) can help a lot in letting you know whether or not to worry with how short of breath you might feel. A pulse ox above 90, while not truly normal, is perfectly acceptable/safe as you are recovering from this. A pulse ox in the high 80s when you are walking would not be surprising, but I would expect it to improve to the low 90s once you have re sted for a few minutes. If you are feeling short winded, and your pulse ox is above 90, you can watch/wait/see how you feel over a while. If you are feeling short winded and your pulse ox is in the 80s, sit and rest, and if it does not rebound into the 90s in 5 minutes or so, then it would be reasonable to start thinking about getting checked out. -Because Covid makes people more prone to blood clots, we had you on a low-dose of a blood thinner while you were here, just to be on the safe side, we will have you take 81 mg aspirin daily for the next 2 weeks, while you are still recovering from things. After that it really should not be necessary to continuebut if there are any questions, your PCP could continue to give you guidance in this regard. vaccine -As we discussed yesterday, you will have pretty robust immunity, unfortunately "earned the hard way" from getting sick with Covid, but what we are seeing is that people who have at least 1 dose of the vaccine on top of natural immunity really might as well be "impervious to Covid" with what we are seeing in a data for any future infections. To that end, it would be pretty reasonable to get a dose of something in about 3 months. As we discussed, while a common concern is that the vaccines were rushedas we discussed, the main things that make a vaccine takes along to develop are the phase 2 clinical trialswhere the drug company really puts a lot of effort into deciding if the medicine is going to be worth their investmentand because of "operation warp speed" drug companies did not have to worry about covering their own investment, and therefore were able to skip phase 2 altogether. (Again to reiterate face to really does not have anything to do with true safety or effectivenessjust "does this look good enough that it is worth us dumping $1 billion into it"). The vaccines were also able to come to the market quickly because the other partthe phase 3 clinical trialsusually take a long time until enough people have come down with the disease to unblinded study and compare how often people getting the vaccine got sick compared with people who got the placebo. Because Covid is everywhere, they were able to get enough cases in very short order to get that data. Generally speaking these vaccines all look really safeas we discussed, there is not really a wrong choice for you, but probably given that you would run about a 1:6000 risk of myocarditis (which would really likely be mild and self-limited anyway) with one of the mRNA vaccines, and the risk of weird clotting events with the [employer] would be more like 100 million, probably it would not be a bad choice to get 1 dose of [employer] in mid April and call it a day. Acute malnutrition -A big part of what was making you feel so lousy was that between feeling so sick, and the altered sense of taste and smell, you really quickly got behind nutritionally. The biggest way that showed up on your labs was the low sodium, and low potassium. All of this added to how lousy you are feeling. -Taste and smell sometimes come back slowly with Covidunfortunately it is not rare for it to take several months for people to truly regain their sense of taste and smell. During that time, you may have to look at nutrition and hydration as more "meeting a budget" than satisfying hunger or thirst. [employer] trying to get in least 60 to 80 ounces of fluid a day. As far as calorieslike we discussed, the "bare minimum" that your body will burn in a day based on your age, height, and weight, is about 2000 jenifer a day. To that end, we will want you making sure you are getting enough nutrition, and as we discussedif this is a struggleyou can supplement with things like boost or Ensure. (Like we discussed, a typical boost will have about 250 jenifer and 8 ounces of fluid, the boost plus has about 350, and while you need to get it online, the boost extra high-calorie has about 500 jenifer and 8 ounces). I doubt you will need the s upplements, but that way if you are struggling you know that there is a "cheat" you can use to maintain adequate nutrition while you are recovering Fast heart rate/abnormal EKG -This really all looked like secondary symptoms from being so sick, and being so depleted on potassium. I had them get a repeat EKG before you left to ensure that most of those changes have normalized, I apologize that I do not have those findings able to put in these instructions at this point in time. I expect it to have improved signicantly, if not totally normalized. Pending Studies at Discharge: No Stand-Alone Forms: [facility], Work/School Release, Smoking Cessation Medications and DC Order Prescriptions: New dexamethasone [Decadron] 6 mg tablet 6 mg PO DAILY Qty: 8 RF: 0 benzonatate [Tessalon Perles] 100 mg capsule 100 mg PO TID PRN (Reason: cough) Qty: 30 RF: 0 aspirin 81 mg tablet,delayed release (DR/EC) 81 mg PO DAILY Qty: 14 RF: 0 Discharge Orders: Discharge Order (Routine); Ordered 02/13/21 Ordered By: Zenon Sales Admission Data Admit Date/Time: 02/12/21 11:08 Attending Provider: Zenon Sales Admit Provider: Zenon Sales Primary Care Provider: PCP,NO Other Providers: Zenon Sales Other Interventions: Discharge Summary Assessment (RN) Last Done: 02/13/21 14:05 Coding Level of Care Code D/C DAY MANAGEMENT >30 MINS Diagnoses 2019 novel coronavirus-infected pneumonia (NCIP) U07.1; J12.82 Hypoxia R09.02 Hypokalemia E87.6 Acute hyponatremia E87.1 Tachycardia R00.0 Exercise-induced asthma J45.990 DVT prophylaxis Z29.9 Discharge planning issues Z02.9 Long QT interval R94.31
--- NOTE | 2021-02-14 16:58 | Electrocardiogram Report ---
Test Reason : Blood Pressure : / mmHG Vent. Rate : 065 BPM Atrial Rate : 065 BPM P-R Int : 142 ms QRS Dur : 104 ms QT Int : 506 ms P-R-T Axes : 045 044 -08 degrees QTc Int : 526 ms Normal sinus rhythm Prolonged QT Abnormal ECG When compared with ECG of 12-FEB-2021 08:06, Nonspecific T wave abnormality no longer evident in Lateral leads Confirmed by Travis Campo ([id number]) on 02/14/2021 4:58:17 PM Referred By: REFERRED SELF Confirmed By:Travis Campo
== END 2021-02-13 15:28 | disposition home or self-care (01) | DRG 177 ==
LOC: ED 06:23 → 2E 11:08
DX: R00.0 Tachycardia, unspecified; E87.1 Hypo-osmolality and hyponatremia; E87.6 Hypokalemia; Z87.891 Personal history of nicotine dependence; Z88.2 Allergy status to sulfonamides; R94.31 Abnormal electrocardiogram [ECG] [EKG]; J12.82 Pneumonia due to coronavirus disease 2019; U07.1 COVID-19; E46 Unspecified protein-calorie malnutrition; Z88.1 Allergy status to other antibiotic agents